=== PATIENT | female | born 1980 | race Caucasian/White ===

== ENCOUNTER 2018-11-19 19:30 | Emergency (ER) | payer MEDICAID, SELFPAY ==
[2018-11-19 19:33] VITALS: BP 128/81; PULSE 104; RESP 20; TEMP 36.8; O2SAT 100; BMI 37.8
--- NOTE | 2018-11-19 20:09 | ED.VISSUMM ---
- ER Visit Summary Date of Service: 11/19/18 Chief Complaint: Vaginal bleeding History of Present Illness: The patient is a 38 F past medical history of anemia, hypothyroidism and G2, P2 Ab0. States she is had intermittent heavy vaginal bleeding for over a year. It has gotten worse since . States she does feel at times week. Denies any significant pain other than some mild cramping. No dysuria. No discharge. She is seen in the [facility] at the [facility] by nurse practitioner. She states they did an ultrasound in the last several months which showed a thickened uterine lining. She has not needed a transfusion as of yet nor has she needed a D&C. Physical Examination: Vital signs are stable. Heart rate 104. Initial blood pressure 128/81. She does not look septic or toxic. She is no distress. She does not appear to be pale. HEENT exam unremarkable other pale. Neck nontender. Lungs with auscultation bilaterally. Heart regular rhythm rate about 100 no murmur. Abdomen soft nontender normal bowel sounds no peritoneal signs. Moving all 4 extremities. No edema. Neurologically she is awake and alert with no focal motor deficits. Test Results: CBC White count 7. Hemoglobin 12 which is her baseline. Serum test negative. Emergency Department Course and Treatment: Patient with prolonged and heavy vaginal bleeding. Repeat exam at 2114 patient is doing well. Given that she is not anemic and she said her bleeding is not heavy at this time she is comfortable deferring the pelvic exam at follow-up with the [facility]. And explained her that she needs to see 1 of her [employer] to discuss with them possible D&C or other therapeutic options Treatment Plan: Follow-up [facility]. Disposition: Discharge Impression: Acute on chronic vaginal bleeding This note was generated with [employer] dictation software. It may contain incorrect words, spelling, and punctuation that were not noted in review of the chart prior to signing ED Disposition - Plan for ED Patient: Referrals: Vita Stanley MD [Primary Care Provider] -
[2018-11-19 20:39] LABS: Hematocrit 35.7 % (37-47); Hemoglobin 12.1 g/dl (12.0-15.0); Mean Corp Hgb Conc 33.9 g/gl (32-36); Mean Corpuscular Hgb 31.7 pg (27.0-32.0); Mean Corpuscular Volume 93.5 fL (81-99); Mean Platelet Vol. 10.9 fl (6.2-12.0); Platelet Count 207 K/mm3 (150-450); RBC Distribution Width CV 12.9 % (11.6-14.6); RBC Distribution Width SD 44.3 fl (35.1-43.9); Red Blood Count 3.82 M/mm3 (4.2-5.4); Scan Indicated on CBC? Y/N NO
[2018-11-19 21:13] LABS: Internal QC Validated? YES +Cl - CLEAR BKGD; Pregnancy, Serum, hCG Quali. NEGATIVE Negative
--- NOTE | 2018-11-19 21:17 | ED.DEP ---
ED Disposition - Plan for ED Patient: Disposition: Home or Assisted Living Instructions: ED Bleed Irregular Vaginal Referrals: Ely Sahu MD [STAFF PHYSICIAN] - As soon as possible Additional Instructions: Call follow-up with 1 of the [employer] [facility].
[2018-11-19 21:24] VITALS: BP 123/71; PULSE 87; RESP 18; O2SAT 98
== END 2018-11-19 21:25 | disposition home or self-care (01) ==
PROVIDERS: Emergency Provider Emergency Medicine; Family Provider Internal Medicine; PCP Internal Medicine
DX: N93.9 Abnormal uterine and vaginal bleeding, unspecified (principal); E03.9 Hypothyroidism, unspecified
CPT/HCPCS: 84703; 85027; 86850; 86900; 86901; 99283; A4216

== ENCOUNTER → 2018-12-25 08:54 | Outpatient (CLI) | payer MEDICAID, SELFPAY | PROVIDERS: Family Provider Internal Medicine; PCP Internal Medicine; Referring Provider Obstetrics & Gynecology; Visit Provider Obstetrics & Gynecology | DX: Z01.818 Encounter for other preprocedural examination (principal) ==

== ENCOUNTER 2019-01-19 16:27 | Emergency (ER) | payer MEDICAID, SELFPAY ==
[2019-01-19 16:28] VITALS: BP 142/80; PULSE 109; RESP 18; TEMP 36.9; O2SAT 99; BMI 35.6
--- NOTE | 2019-01-19 17:04 | EKG12_ITS ---
Test Reason : Blood Pressure : / mmHG Vent. Rate : 099 BPM Atrial Rate : 099 BPM P-R Int : 132 ms QRS Dur : 074 ms QT Int : 334 ms P-R-T Axes : 012 005 010 degrees QTc Int : 428 ms Normal sinus rhythm Nonspecific T wave abnormality Abnormal ECG Confirmed by JACQUIE KHAN, JESSY ([id number]), video tape editor MASOUD RAMIREZ ([id number]) on 01/21/2019 1:48:00 PM Referred By: TIARA Confirmed By:JESSY DHILLON MD
--- NOTE | 2019-01-19 17:26 | RAD_ITS ---
STUDY: X-RAY CHEST REASON FOR EXAM: Female, 38 years old. Chest pain. TECHNIQUE: PA and lateral. COMPARISON: None. FINDINGS: The lungs are clear and expanded. There is no demonstrated pleural abnormality. Normal size heart. Normal mediastinum and brenda. Normal visualized pulmonary arteries. Normal visualized aortic arch and descending thoracic aorta. Normal visualized thoracic spine. Normal visualized ribs, clavicles, and shoulders. There is no demonstrated abnormality of the visualized soft tissue structures of the upper abdomen. RAD/Chest PA and Lateral IMPRESSION: Normal x-ray examination of the chest. Electronically Signed: Maribeth Cisneros MD at 17:45 EDT Tel , Service support ,
[2019-01-19 17:29] LABS: D-Dimer Quantitative (DVT/PE) 0.45 FEU/ug/m (0.27-0.49)
--- NOTE | 2019-01-19 17:56 | ED.VIS.GEN ---
History of Present Illness Chief Complaint: Chest Other Informant: Patient Onset: Days - 2 Timing: Continuous Current Severity: Moderate Maximum Severity: Moderate Narrative: Patient presents with chest wall pain on the left for the past 2 days it is constant but worse with taking a deep breath twisting or moving. She has no DVT risk factors. She has no back pain or tearing sensation. No fever or chills or cough. She has no abdominal pain. Pain is sharp stabbing and constant Past Medical History - Allergies and Home Meds Allergies/Adverse Reactions: Allergies Penicillins Allergy (Verified 01/19/19 16:30) Rash Primary Care Physician: Vita Stanley MD [Primary Care Provider] - Prior records reviewed: Yes Past Medical History: - - Bipolar, hypothyroid Smoking Status: Never smoker Review of Systems All systems negative except as indicated General: Denies: Fever Cardiovascular: Reports: Chest pain. Denies: Palpitations, Heart racing Respiratory: Denies: Dyspnea, Cough, Sputum Gastrointestinal: Denies: Abdominal pain, Nausea, Vomiting Musculoskeletal: Denies: Back pain Skin: Denies: Rash Neurological: Denies: Weakness Endocrine: Denies: Polyuria Hematologic: Denies: Easy bruising Physical Exam Vital Signs/Narrative: Vital Signs Temp Pulse Resp BP Pulse Ox 01/19/19 16:28 98.5 F 109 H 18 142/80 H 99 General: Well nourished Head: Normocephalic Eyes: Perrl, EOMI ENT: Moist mucous membranes Neck: Supple Cardiovascular: Regular rate, Regular rhythm Respiratory: Chest tenderness, - - Producible left-sided chest wall pain, no rash Abdomen: Soft, Nontender Back: Nontender, Normal Inspection Extremities: Nontender, No edema Skin: Normal color, No rash Neurological: Alert, Normal Strength, Normal Sensation Diagnostic/Tx/Re-eval Chest X-Ray - ED: 2 View, Read by ED Physician, Read by Radiologist, Normal, Heart, Lungs, Mediastinum - Rhythm Strip Rhythm Strip: Sinus Rhythm Rate: 99 Ectopy: None - EKG Initial EKG Interpretation: Sinus Rhythm, Non-Specific ST Changes, - - Is 99, normal MN and QTc intervals. Interpreted by emergency doctor - Medical Decision Making Patient has a normal EKG normal troponin, d-dimer is negative. She has family history of cardiac disease, no other history her heart score is a 2 I believe she is stable for discharge. She is to follow-up with PCP. Discharge stable condition ED Disposition - Plan for ED Patient: Disposition: Home or Assisted Living Diagnosis: Chest pain Instructions: CHEST WALL PAIN, Costochondritis Prescriptions: Naproxen [Naprosyn] 500 mg PO BID PRN #20 tab Prescription Printed Referrals: Vita Stanley MD [Primary Care Provider] - 3-5 Days
== END 2019-01-19 18:17 | disposition home or self-care (01) ==
PROVIDERS: Emergency Provider Emergency Medicine; Family Provider Internal Medicine; PCP Internal Medicine
DX: R07.89 Other chest pain (principal); Z82.49 Family history of ischemic heart disease and other diseases of the circulatory system; F31.9 Bipolar disorder, unspecified; E03.9 Hypothyroidism, unspecified; Z79.899 Other long term (current) drug therapy
CPT/HCPCS: 71046; 84484; 85379; 93005; 99283; A4216

== ENCOUNTER 2019-04-02 22:30 | Emergency (ER) | payer MEDICAID, SELFPAY ==
[2019-04-02 22:31] VITALS: BP 121/77; PULSE 97; RESP 16; TEMP 36.6; O2SAT 100; BMI 35.6
--- NOTE | 2019-04-02 22:55 | ED.VIS.GEN ---
History of Present Illness Chief Complaint: Eye Problem Narrative: Patient is a 38-year-old female who presents with a left eye injury. She was putting nail cameroonian on and shook her hands and got some of the nail cameroonian into her left eye. She was wearing contacts at the time which she has taken out. She initially had some discomfort but currently actually is asymptomatic. She does not currently have any foreign body sensation or visual changes. She states she just wanted it checked to make sure there there was nothing still in her eye and that she did not have any injury. Past Medical History - Allergies and Home Meds Allergies/Adverse Reactions: Allergies Penicillins Allergy (Verified 04/02/19 22:33) Rash Primary Care Physician: Vita Stanley MD [Primary Care Provider] - Past Medical History: - - Bipolar Smoking Status: Never smoker Review of Systems All systems negative except as indicated General: Denies: Fever Eyes: Reports: - - Transient left eye pain Cardiovascular: Denies: Chest pain Respiratory: Denies: Dyspnea Gastrointestinal: Denies: Vomiting Physical Exam Vital Signs/Narrative: Vital Signs Temp Pulse Resp BP Pulse Ox 04/02/19 22:31 98 F 97 16 121/77 H 100 General: Well nourished, Well developed Head: Normocephalic, Atraumatic Eyes: Perrl - Anterior chamber deep and quiet, no foreign body visualized, eyelids everted no hyphema,, EOMI, - Neck: Supple Cardiovascular: Regular rate Respiratory: No distress Abdomen: Soft Skin: Normal color Neurological: Alert Psychological: Normal affect Diagnostic/Tx/Re-eval - Medical Decision Making Slit-lamp examination with tetracaine and fluorescein was performed. No corneal abrasion or dye uptake. Patient was reassured. She understands to return for new or worsening symptoms and was discharged home. ED Disposition - Plan for ED Patient: Disposition: Home or Assisted Living Diagnosis: Left eye injury Instructions: Corneal Injury Referrals: Vita Stanley MD [Primary Care Provider] -
[2019-04-02] MEDS: Fluorescein 1 MG STRIP 1 STRIP LEFT EYE (23:08)
[2019-04-02] MEDS: Tetracaine 0.5% Ophthalmic Bottle 1 DRP LEFT EYE (23:09)
== END 2019-04-02 23:27 | disposition home or self-care (01) ==
PROVIDERS: Emergency Provider Emergency Medicine; Family Provider Internal Medicine; PCP Internal Medicine
DX: S05.92XA Unspecified injury of left eye and orbit, initial encounter (principal); X58.XXXA Exposure to other specified factors, initial encounter; Y93.89 Activity, other specified
CPT/HCPCS: 99282

== ENCOUNTER 2022-02-13 00:29 | Emergency (ER) | payer MEDICAID, SELFPAY ==
[2022-02-13 00:29] VITALS: BP 135/87; PULSE 95; RESP 16; TEMP 36.8; O2SAT 100; BMI 37.4
--- NOTE | 2022-02-13 00:49 | EDS_ITS ---
HPI History of Present Illness Chief Complaint: General Illness Informant: patient Narrative Narrative: Patient told me that her symptoms started about 1 week ago and about 2 weeks ago. She started with runny nose congestion. She has had a slight cough but that is getting better. No sputum production. No dyspnea. She has had some myalgias arthralgias. and Monday she had a lot of nausea and vomiting but that is better today. She still has some nausea but is able to eat and drink now. She never had diarrhea. She just feels off and generally weak today. It is hard for her to describe this. She is concerned she has COVID again. No known exposure. [facility] Medical History Bipolar 1 disorder Hypothyroid Home Medications lamotrigine 200 mg tablet (Lamictal) 150 mg PO DAILY 06/27/13 [History Last Taken Unknown] levothyroxine 150 mcg tablet 137 mcg PO DAILY 11/19/18 [History Last Taken Unknown] buspirone 5 mg tablet 5 mg DAILY 02/13/22 [History Last Taken Unknown] Allergy/AdvReac Type Severity Reaction Status Date / Time Penicillins Allergy Rash Verified 02/13/22 00:31 Social History Smoking Status: Never smoker [facility] ED Constitutional Constitutional ED: Denies fever(s) Eyes Eyes: Denies blurry vision ENT ENT ED: Reports rhinorrhea and sore throat Cardiovascular Cardiovascular: Denies chest pain or palpitations Respiratory/Chest Respiratory/Chest: Reports cough; Denies dyspnea Gastrointestinal Gastrointestinal: Reports nausea and vomiting; Denies abdominal pain, constipation, diarrhea or melena Genitourinary Genitourinary ED: Denies dysuria or hematuria Musculoskeletal Musculoskeletal: Reports myalgias Integumentary Denies rash Neurologic Neurologic: Denies headache(s) or weakness Psychiatric Psychiatric: Reports anxiety and depression Endocrine Endocrinology: Denies polydipsia or polyuria Hematologic/Lymphatic Hematologic/Lymphatic: Denies easy bleeding or easy bruising Allergic/Immunologic Allergic/Immunologic ED: Denies urticaria EXAM Physical Exam Const Vital Signs: 02/13/22 00:29 02/13/22 00:33 Temperature 98.3 F Temperature Source Oral Pulse Rate 95 Respiratory Rate 16 Respiratory Effort Normal Non-Labored Respiratory Pattern Normal Blood Pressure 135/87 H Blood Pressure Mean 103 Pulse Ox 100 Oxygen Delivery Method Room Air Positive well nourished, well developed and obese General Appearance ED: well developed and NAD; Negative for pallor Nutritional Appearance: obese HEENT Reports dry mucous membranes Mouth ED: Yes dry mucous membranes Mouth: dry mucous membranes Eyes General Eye ED: Negative for scleral icterus Neck no JVD Chest Wall inspection of chest normal Resp normal respiratory effort and clear to auscultation bilaterally Auscultation: Negative for rales, rhonchi or wheezes Cardio regular rate and regular rhythm GI normal to inspection, nondistended, normoactive bowel sounds and non-tender Palpation: soft Back/Spine no CVA tenderness Extremity normal to inspection General Extremety ED: Negative for edema or tenderness General Extremity: Negative for edema Neuro oriented x3 Sensorium / Orientation: alert Psych mental status grossly normal Skin no rashes or lesions noted General Skin Exam: Negative for jaundice or pallor MDM MDM MDM Narrative Medical decision making narrative: Patient CBC including white count hemoglobin platelets normal. Electrolytes are overall normal other than minimal elevations of chloride and glucose. is negative. COVID is negative. Patient is feeling better. We will get her home. This is most likely a viral syndrome. She has multiple symptoms across multiple systems. These are waxing and waning. She is tired with myalgias. This should resolve on its own. We did discuss reasons to prompt return and need for follow-up. Lab Data Attestation: I reviewed the patient's lab results. Labs: Laboratory Results - last 24 hr 02/13/22 02/13/22 02/13/22 01:10 01:10 01:10 WBC 8.7 RBC 3.88 L Hgb 12.4 Hct 36.7 L MCV 94.6 MCH 32.0 MCHC 33.8 RDW Std Deviation 43.4 RDW Coeff of Jose 12.6 Plt Count 198 MPV 11.2 Immature Gran % (Auto) 0.300 Neut % (Auto) 43.8 L Lymph % (Auto) 48.9 H [place] % (Auto) 5.0 Eos % (Auto) 1.4 Baso % (Auto) 0.6 Absolute Neuts (auto) 3.8 Absolute Lymphs (auto) 4.27 Nucleated RBC % 0 Sodium 141 Potassium 3.7 Chloride 109 H Carbon Dioxide 26.0 Anion Gap 6 BUN 10 Creatinine 0.86 Estim Creat Clear Calc 68.09 Est GFR (MDRD) Af Amer 93 Est GFR (MDRD) Non-Af 77 BUN/Creatinine Ratio 11.6 Glucose 117 H Calcium 9.4 Serum , Qual NEGATIVE Discharge Plan Triage Chief Complaint: General Illness ED Provider: Imtiaz Modi Dx/Rx/DC Orders Clinical Impression: Acute viral syndrome, Malaise Instructions: ED Viral Syndrome (Adult) Prescriptions: No Action lamotrigine [Lamictal] 200 MG tablet 150 mg PO DAILY levothyroxine 150 tablet 137 mcg PO DAILY buspirone 5 mg tablet 5 mg DAILY Label Comments: Take 1 tablet by mouth twice a day Primary Care Provider: Vita Stanley Referrals: Vita Stanley MD [Primary Care Provider] - 3-5 Days if not improving Disposition Disposition: Home, Self Care
[2022-02-13] MEDS: 0.9% Normal Saline 1,000 ML 1000 ML IV (01:06)
[2022-02-13] MEDS: Ondansetron 4 MG/2 ML Vial IV (01:06)
[2022-02-13 01:30] LABS: Absolute Lymphocyte Count 4.27 X10^3/uL (0.83-4.51); Absolute Neutrophil Count 3.8 X10^3/uL (2.0-7.7); Basophil# 0.05 X10^3/uL; Basophil% 0.6 % (0-1); Eosinophil# 0.12 X10^3/uL; Eosinophils% 1.4 % (0-5); Hematocrit 36.7 % (37-47); Hemoglobin 12.4 g/dL (12.0-15.0); Lymphocyte # 4.27 X10^3/ul (0.83-4.51); Lymphocyte % 48.9 % (19-41); Mean Corp Hgb Conc 33.8 g/dL (32-36); Mean Corpuscular Volume 94.6 fL (81-99); Mean Platelet Vol. 11.2 fl (6.2-12.0); Monocyte# 0.44 X10^3/uL; NRBC Flagged by Analyzer 0 % (0-5); Neutrophil # 3.83 X10^3/uL (2.7-7.7); Neutrophil % 43.8 % (47-70); Platelet Count 198 K/mm3 (150-450); RBC Distribution Width CV 12.6 % (11.6-14.6); RBC Distribution Width SD 43.4 fl (35.1-43.9); Red Blood Count 3.88 M/mm3 (4.2-5.4); White Blood Count 8.7 K/mm3 (4.4-11.0)
[2022-02-13 01:34] LABS: Internal QC Validated? YES +Cl - CLEAR BKGD; Pregnancy, Serum, hCG Quali. NEGATIVE Negative
[2022-02-13 01:39] LABS: Anion Gap 6 (5-15); BUN 10 mg/dL (7-18); BUN/Creat Ratio 11.6 RATIO (10-20); Calcium,Total 9.4 mg/dL (8.5-10.1); Chloride 109 mmol/L (98-107); Creatinine, Serum 0.86 mg/dL (0.55-1.02); EST Glomerular Filtration Rate 77 mL/min (>60); Est Glom Filt Rate - Afr Amer 93 mL/min (>60); Estimated Creatinine Clearance 68.09 ml/min; Glucose 117 mg/dL (74-106); Potassium 3.7 mmol/L (3.5-5.1); Sodium Level 141 mmol/L (136-145)
[2022-02-13 02:35] VITALS: BP 125/82
== END 2022-02-13 02:36 | disposition home or self-care (01) ==
PROVIDERS: Emergency Provider Emergency Medicine; PCP Internal Medicine; Visit Provider Emergency Medicine
DX: B34.9 Viral infection, unspecified (principal); F31.9 Bipolar disorder, unspecified; R53.81 Other malaise; E03.9 Hypothyroidism, unspecified; Z79.899 Other long term (current) drug therapy; Z86.16 Personal history of COVID-19
CPT/HCPCS: 80048; 84703; 85025; 87428; 96361; 96374; 99283; J7030; A4216; J2405

== ENCOUNTER 2024-06-07 14:31 | Emergency (ER) | payer MEDICAID, SELFPAY ==
[2024-06-07 14:31] VITALS: BP 107/65; PULSE 91; RESP 16; TEMP 37.1; O2SAT 100
--- NOTE | 2024-06-07 14:36 | EKG12_ITS ---
Test Reason : Blood Pressure : */* mmHG Vent. Rate : 96 BPM Atrial Rate : 96 BPM P-R Int : 136 ms QRS Dur : 76 ms QT Int : 324 ms P-R-T Axes : 50 46 53 degrees QTcB Int : 409 ms Normal sinus rhythm Normal ECG Confirmed by Olman York ([id number]), editor greeting card CHRISTINE VARGAS ([id number]) on 06/10/2024 6:55:39 AM Referred By: Confirmed By: Olman York
[2024-06-07 14:47] LABS: Absolute Lymphocyte Count 3.03 X10^3/uL (0.83-4.51); Basophil# 0.04 X10^3/uL; Basophil% 0.4 % (0-1); Eosinophil# 0.03 X10^3/uL; Eosinophils% 0.3 % (0-5); Hematocrit 35.3 % (37-47); Hemoglobin 11.7 g/dL (12.0-15.0); Lymphocyte # 3.03 X10^3/ul (0.83-4.51); Lymphocyte % 30.5 % (19-41); Mean Corp Hgb Conc 33.1 g/dL (32-36); Mean Corpuscular Hgb 31.9 pg (27.0-32.0); Mean Corpuscular Volume 96.2 fL (81-99); Mean Platelet Vol. 11.4 fl (6.2-12.0); Monocyte# 0.81 X10^3/uL; Monocyte% 8.2 % (0-10); NRBC Flagged by Analyzer 0 % (0-5); Neutrophil % 60.4 % (47-70); Platelet Count 168 K/mm3 (150-450); RBC Distribution Width SD 42.1 fl (35.1-43.9); Red Blood Count 3.67 M/mm3 (4.2-5.4); White Blood Count 9.9 K/mm3 (4.4-11.0)
[2024-06-07 15:15] LABS: ALB/GLOB Ratio 0.8 RATIO (0.9-2.4); AST(SGOT) 51 U/L (15-37); Alanine Aminotransfer ALT/SGPT 54 U/L (13-56); Albumin, Serum 3.6 g/dL (3.2-5.0); Alkaline Phosphatase 149 U/L (45-117); Anion Gap 6 (5-15); BUN 5 mg/dL (7-18); BUN/Creat Ratio 4.1 RATIO (10-20); Calcium,Total 9.1 mg/dL (8.5-10.1); Chloride 102 mmol/L (98-107); Creatinine, Serum 1.22 mg/dL (0.55-1.02); EST Glomerular Filtration Rate 51 mL/min (>60); Est Glom Filt Rate - Afr Amer 62 mL/min (>60); Globulin 4.3 g/dL (2.2-4.2); Glucose 96 mg/dL (74-106); Potassium 2.7 mmol/L (3.5-5.1); Protein, Total 7.9 g/dL (6.4-8.2); Sodium Level 135 mmol/L (136-145)
[2024-06-07 15:30] VITALS: BMI 36.8
[2024-06-07 15:31] VITALS: BP 109/74; BP 110/77; BP 112/82; PULSE 100; PULSE 97; PULSE 98; RESP 16; O2SAT 97
[2024-06-07] MEDS: 0.9% Normal Saline (1000mL) 1,000 ML 999 ML IV (15:31)
[2024-06-07] MEDS: Potassium Chloride Oral Tablet 20 MEQ 40 MEQ PO (15:31)
[2024-06-07 15:38] LABS: Magnesium 2.3 mg/dL (1.6-2.6)
--- NOTE | 2024-06-07 15:51 | EX.ED.DYSGE1 ---
HPI History of Present Illness Chief Complaint: Syncope Informant: patient Narrative Narrative: Brought in by EMS from work for syncopal episode. 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 [place] sick to her stomach she remembers dry heaving 2 times and up on the ground waking up to coworkers. Yesterday just felt fatigued. Is been having urine frequency. No chest pains. No cough. No headache. She has an IUD due to abnormal bleeding. Denies history of similar. Hypothyroidism bipolar history taking her medications. No recent diarrhea. Prior similar symptoms: No PFSH PFSH Medical History Bipolar 1 disorder Hypothyroid Home Medications ?Medication ?Instructions ?Recorded ?Last Taken ?Type lamotrigine 200 mg tablet 150 mg PO DAILY 06/27/13 Unknown History (Lamictal) buspirone 5 mg tablet 5 mg PO DAILY 02/13/22 Unknown History levothyroxine 137 mcg tablet 137 mcg PO DAILY disorder of 06/07/24 Unknown History thyroid gland nitrofurantoin 100 mg PO Q12 #14 CAPSULES 06/07/24 Unknown Rx monohydrate/macrocrystals 100 mg capsule ondansetron 4 mg disintegrating 4 mg PO Q8H PRN PRN Nausea #10 tabs 06/07/24 Unknown Rx tablet potassium chloride 20 mEq 20 meq PO DAILY #7 tabs 06/07/24 Unknown Rx tablet,extended release Allergy/AdvReac Type Severity Reaction Status Date / Time Penicillins Allergy Rash Verified 06/07/24 14:33 Surgical History History of cholecystectomy Social History Smoking Status: Never smoker ROS ROS ED Constitutional Constitutional ED: Denies chills, fever(s) or sweats Eyes Eyes: Denies change in vision ENT ENT ED: Denies dysphagia or sore throat Cardiovascular Cardiovascular: Reports other Details: Syncope ; Denies chest pain, leg edema, palpitations or racing heartbeat Respiratory/Chest Respiratory/Chest: Denies cough, dyspnea or dyspnea on exertion Gastrointestinal Gastrointestinal: Denies abdominal pain, diarrhea, nausea or vomiting Genitourinary Genitourinary ED: Reports urinary frequency; Denies dysuria or hematuria Musculoskeletal Musculoskeletal: Denies back pain, extremity pain or neck pain Integumentary Denies rash or wounds Neurologic Neurologic: Denies headache(s), paresthesias or weakness EXAM Physical Exam Const Vital Signs: 06/07/24 14:31 06/07/24 15:30 06/07/24 15:31 Temperature 98.8 F Temperature Source Oral Pulse Rate 91 Pulse Rate [Lying] 97 Pulse Rate [Sitting (for 1 minute prior to obtaining)] 98 Pulse Rate [Standing (for 1 minute prior to obtaining)] 100 Respiratory Rate 16 Respiratory Effort Respiratory Pattern Blood Pressure 107/65 Blood Pressure [Lying] 109/74 Blood Pressure [Sitting (for 1 minute prior to obtaining)] 112/82 H Blood Pressure [Standing (for 1 minute prior to obtaining)] 110/77 Blood Pressure Mean 79 Blood Pressure Mean [Lying] 85 Blood Pressure Mean [Sitting (for 1 minute prior to obtaining)] 92 Blood Pressure Mean [Standing (for 1 minute prior to obtaining)] 88 Pulse Ox 100 Oxygen Delivery Method Room Air Room Air 06/07/24 15:31 06/07/24 15:32 06/07/24 16:00 Temperature Temperature Source Pulse Rate 97 105 H Pulse Rate [Lying] Pulse Rate [Sitting (for 1 minute prior to obtaining)] Pulse Rate [Standing (for 1 minute prior to obtaining)] Respiratory Rate 16 15 Respiratory Effort Normal Respiratory Pattern Normal Blood Pressure 109/74 109/83 H Blood Pressure [Lying] Blood Pressure [Sitting (for 1 minute prior to obtaining)] Blood Pressure [Standing (for 1 minute prior to obtaining)] Blood Pressure Mean 85 91 Blood Pressure Mean [Lying] Blood Pressure Mean [Sitting (for 1 minute prior to obtaining)] Blood Pressure Mean [Standing (for 1 minute prior to obtaining)] Pulse Ox 97 98 Oxygen Delivery Method Room Air Room Air Positive well nourished and well developed General Appearance ED: well developed and NAD HEENT Reports moist mucous membranes normocephalic and atraumatic Eyes EOMs intact bilaterally and conjunctivae normal General Eye ED: Yes normal appearance of both eyes; Negative for pale conjunctiva Neck no lymphadenopathy and supple General: Negative for tenderness Chest Wall Chest: Negative for tenderness Resp normal respiratory effort and normal air movement Effort and Inspection: symmetric chest movement; Negative for respiratory distress Cardio regular rate, regular rhythm and no murmurs Peripheral Pulses: pulses 2+ throughout GI normal to inspection, nondistended, normoactive bowel sounds and non-tender Palpation: Negative for guarding or rebound tenderness present Back/Spine no CVA tenderness and no thoracic nor lumbar tenderness Extremity normal to inspection General Extremety ED: Negative for edema or tenderness General Extremity: Negative for edema Neuro oriented x3, CN's II-XII intact bilaterally and no sensory deficits noted Sensorium / Orientation: awake and alert Skin no rashes or lesions noted and no wounds MDM MDM MDM Narrative Medical decision making narrative: Interventions / MDM: Differential diagnosis: Vasovagal syncope, electrolyte abnormalities, UTI Diagnosis considered but do not suspect: PERC negative pulmonary embolism however My EKG interpretation: Sinus rhythm 96, no ST or T wave changes. QTc 409. Imaging independently reviewed and interpreted by myself: N/A External documents reviewed: N/A Test considered but not ordered:N/A ED course: Vital stable no focal deficits. Patient dry heaving prior to syncopal episode concerning for vasovagal episode. EKG no acute process. Will check labs urine with her frequency. Will give IV fluids. 1545: Potassium returned at 2.7. Creatinine 1.22. Orthostatics negative. Oral potassium ordered added magnesium further evaluation. Will reevaluate. 1650: Urine with infection. Ambulated no return of symptoms. Started on Macrobid slight headache and returns given Tylenol. No focal deficit she is nontoxic. Prescription for Macrobid, potassium for 1 week along with Zofran to use as needed. Work note given. Follow-up with her PCP with strict return precautions. All questions were answered. Re-evaluation: stable Disposition discussed with patient/family/significant other: Patient Case discussed with consulting clinician: N/A This note was generated with [employer] dictation software. It may contain incorrect words, spelling, and punctuation that were not noted in checking the note before signing. Lab Data Attestation: I reviewed the patient's lab results. Labs: Laboratory Results - last 24 hr 06/07/24 06/07/24 14:25 16:17 WBC 9.9 RBC 3.67 L Hgb 11.7 L Hct 35.3 L MCV 96.2 MCH 31.9 MCHC 33.1 RDW Std Deviation 42.1 RDW Coeff of Jose 12.0 Plt Count 168 MPV 11.4 Immature Gran % (Auto) 0.200 Neut % (Auto) 60.4 Lymph % (Auto) 30.5 [place] % (Auto) 8.2 Eos % (Auto) 0.3 Baso % (Auto) 0.4 Absolute Neuts (auto) 6.0 Absolute Lymphs (auto) 3.03 Nucleated RBC % 0 Sodium 135 L Potassium 2.7 L* Chloride 102 Carbon Dioxide 27.0 Anion Gap 6 BUN 5 L Creatinine 1.22 H Est GFR (MDRD) Af Amer 62 Est GFR (MDRD) Non-Af 51 L BUN/Creatinine Ratio 4.1 L Glucose 96 Calcium 9.1 Magnesium 2.3 Total Bilirubin 0.90 AST 51 H ALT 54 Alkaline Phosphatase 149 H Total Protein 7.9 Albumin 3.6 Globulin 4.3 H Albumin/Globulin Ratio 0.8 L Urine Color Straw Urine Clarity Clear Urine pH 7.0 Ur Specific [place] 1.010 Urine Protein 15 H Urine Glucose (UA) Normal Urine Ketones Negative Urine Occult Blood 25 H Urine Nitrite Negative Urine Bilirubin Negative Urine Urobilinogen Normal Ur Leukocyte Esterase 500 H Urine RBC 0 SEEN Urine WBC >100 SEEN Ur Squamous Epith Cells 0 SEEN Urine Bacteria 1+ Urine Mucus 1+ Urine Test Negative Discharge Plan Triage Chief Complaint: Syncope ED Provider: Tony Kearney Dx/Rx/DC Orders Clinical Impression: Syncope, vasovagal, UTI (urinary tract infection), Hypokalemia Instructions: Urinary Tract Infections in Women, ED Fainting, Vagal Reaction Prescriptions: New ondansetron 4 mg tablet,disintegrating 4 mg PO Q8H PRN PRN (Reason: Nausea) Qty: 10 0RF nitrofurantoin monohyd/m-cryst 100 mg capsule 100 mg PO Q12 Qty: 14 0RF potassium chloride 20 mEq tablet extended release 20 meq PO DAILY Qty: 7 0RF No Action lamotrigine [Lamictal] 200 MG tablet 150 mg PO DAILY buspirone 5 mg tablet 5 mg PO DAILY Patient Comments: Take 1 tablet by mouth twice a day levothyroxine 137 mcg tablet 137 mcg PO DAILY Stand Alone Forms: ED Work / School Excuse Primary Care Provider: Vita Stanley Referrals: Vita Stanley MD [Primary Care Provider] - 3-5 Days Activity Restrictions/Additional Instructions: EKG normal. Labs with potassium 2.7 magnesium normal at 2.3. Hemoglobin 11.7. White count 9.9. Creatinine 1.22. Urine with infection. Given potassium replacement in the ED. Continue with potassium. Finish your antibiotic. You Zofran as needed. Continue oral fluids for hydration. Follow-up with your doctor. Symptoms recur or worsens, return to the ED for reevaluation. Print Language: Greek Disposition Disposition: Home, Self Care
[2024-06-07 16:00] VITALS: BP 109/83; PULSE 105; RESP 15; O2SAT 98
[2024-06-07 16:26] VITALS: O2SAT 98
[2024-06-07 16:26] LABS: Red Blood Cells-Urine 0 SEEN /hpf (0-5); Squamous Epithelial Cells - UA 0 SEEN /hpf (5-10)
[2024-06-07 16:30] LABS: Color, Urine Straw (Yellow); Glucose, Dipstick Normal (Normal); Ketone-Dipstick Negative (Negative); Leukocyte Esterase-Dipstick 500 /ul (Negative); Nitrite-Dipstick Negative (Negative); Occult Blood-Urine 25 /ul (Negative); Protein-Dipstick 15 mg/dl (Negative); Urine Bilirubin Dipstick Negative (Negative); Urine Clarity Clear (Clear); Urine Urobilinogen Normal (Normal)
[2024-06-07 16:32] VITALS: O2SAT 98
[2024-06-07 16:43] LABS: Bacteria 1+ /hpf (None Seen); Internal QC Validated? YES +Cl - CLEAR BKGD; Mucous, Urine 1+ /hpf (<or=2+); Pregnancy, Urine Negative Negative; White Blood Cells >100 SEEN /hpf (0-5)
[2024-06-07] MEDS: Acetaminophen 500 MG Tablet 1000 MG PO (17:01)
[2024-06-07] MEDS: Nitrofurantoin Macrocrystals 100 MG Capsule PO (17:02)
[2024-06-07 17:03] VITALS: BP 118/67; PULSE 77; RESP 16; TEMP 36.5; O2SAT 97
== END 2024-06-07 17:04 | disposition home or self-care (01) ==
PROVIDERS: Emergency Provider Emergency Medicine; PCP Internal Medicine; Visit Provider Emergency Medicine
DX: R55 Syncope and collapse (principal); F31.9 Bipolar disorder, unspecified; N39.0 Urinary tract infection, site not specified; E87.6 Hypokalemia; E03.9 Hypothyroidism, unspecified; Z79.899 Other long term (current) drug therapy
CPT/HCPCS: 80053; 81001; 81025; 83735; 85025; 93005; 96360; 99285; A4216

== ENCOUNTER 2024-06-11 18:13 | Emergency (ER) | payer MEDICAID, SELFPAY ==
[2024-06-11 18:16] VITALS: BP 160/79; PULSE 81; RESP 18; TEMP 36.3; O2SAT 100
[2024-06-11 18:19] VITALS: BMI 37.1
[2024-06-11 18:21] VITALS: O2SAT 100
--- NOTE | 2024-06-11 18:21 | EKG12_ITS ---
Test Reason : DYSRYTHMIA Blood Pressure : */* mmHG Vent. Rate : 79 BPM Atrial Rate : 79 BPM P-R Int : 138 ms QRS Dur : 72 ms QT Int : 396 ms P-R-T Axes : 36 8 8 degrees QTcB Int : 454 ms Normal sinus rhythm Cannot rule out Anterior infarct , age undetermined Abnormal ECG Confirmed by JACQUIE KHAN, JESSY ([id number]), newspaper editor CHRISTINE VARGAS ([id number]) on 06/12/2024 11:38:33 AM Referred By: Confirmed By: JESSY DHILLON MD
[2024-06-11 20:14] VITALS: BP 123/77; PULSE 77; RESP 18; O2SAT 100
--- NOTE | 2024-06-11 21:01 | CT_ITS ---
STUDY: CT BRAIN WITHOUT CONTRAST REASON FOR EXAM: Female, 44 years old. headache, syncope RADIATION DOSAGE (If Supplied By Facility): CTDIvol = ( 44.99 ) mGy, DLP = ( 812.98 ) mGycm TECHNIQUE: Transaxial CT imaging of the brain was performed without administration of intravenous contrast material. Individualized dose optimization techniques were used for this CT. COMPARISON: No relevant priors. FINDINGS: Normal soft tissue structures. Normal calvarium. Normal size ventricles and extra-axial spaces for the patient''s age. Normal white matter tracts of the cerebral hemispheres. Normal basal ganglia and thalami. Normal brainstem. Normal cerebellum. There is no intracranial hemorrhage. There are no findings of an acute ischemic infarction. Normal visualized paranasal sinuses. CT/Brain/Head without Contrast IMPRESSION: Normal unenhanced CT scan of the brain. Electronically Signed: Yogi Castillo DO at 22:13 EST ,
--- NOTE | 2024-06-11 21:03 | EDS_ITS ---
HPI History of Present Illness Chief Complaint: Syncope Detail of Chief Complaint: Near syncope Informant: patient Narrative Narrative: Patient presents the emergency department complaint of feeling like she feels like she could pass out. Patient was seen in the emergency department on June 07 after a syncopal episode at work and at that time she was also found to be hypokalemic and felt that she likely had a vasovagal episode. 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 Today she just felt slow and sluggish. She has had a headache for 5 days. She felt like she might pass out again. She denies fever at home but she is felt hot at night over the last 2 nights. She denies significant cough. No history of migraines. [facility] Medical History Bipolar 1 disorder Hypothyroid Home Medications ?Medication ?Instructions ?Recorded ?Last Taken ?Type lamotrigine 200 mg tablet 150 mg PO DAILY 06/27/13 Unknown History (Lamictal) buspirone 5 mg tablet 5 mg PO DAILY 02/13/22 Unknown History levothyroxine 137 mcg tablet 137 mcg PO DAILY disorder of 06/07/24 Unknown History thyroid gland nitrofurantoin 100 mg PO Q12 #14 CAPSULES 06/07/24 Unknown Rx monohydrate/macrocrystals 100 mg capsule ondansetron 4 mg disintegrating 4 mg PO Q8H PRN PRN Nausea #10 tabs 06/07/24 Unknown Rx tablet potassium chloride 20 mEq 20 meq PO DAILY #7 tabs 06/07/24 Unknown Rx tablet,extended release Allergy/AdvReac Type Severity Reaction Status Date / Time Penicillins Allergy Rash Verified 06/11/24 18:16 Surgical History History of cholecystectomy Social History Smoking Status: Never smoker ROS ROS ED Review of Systems ROS Unobtainable: other Constitutional Constitutional ED: Reports lethargy; Denies chills, fever(s), sweats or weight loss Eyes Eyes: Denies blurry vision, change in vision or diplopia ENT ENT ED: Denies rhinorrhea or sore throat Cardiovascular Cardiovascular: Reports chest pain and racing heartbeat; Denies orthopnea Respiratory/Chest Respiratory/Chest: Reports dyspnea and dyspnea on exertion; Denies cough, orthopnea or sputum Gastrointestinal Gastrointestinal: Reports nausea; Denies abdominal pain, diarrhea or vomiting Genitourinary Genitourinary ED: Denies dysuria, hematuria or urinary frequency Musculoskeletal Musculoskeletal: Denies arthralgias, back pain, myalgias or neck pain Integumentary Denies abscess, Abrasions or rash Neurologic Neurologic: Reports weakness; Denies headache(s) Psychiatric Psychiatric: Denies anxiety, depression or suicidal thoughts Endocrine Endocrinology: Denies polydipsia, polyphagia or polyuria Hematologic/Lymphatic Hematologic/Lymphatic: Denies easy bleeding, easy bruising or lymphadenopathy Allergic/Immunologic Allergic/Immunologic ED: Denies mouth swelling, tongue swelling or urticaria EXAM Physical Exam Const Vital Signs: 06/11/24 18:16 06/11/24 18:21 06/11/24 20:14 Temperature 97.3 F L Temperature Source Temporal Pulse Rate 81 77 Respiratory Rate 18 18 Respiratory Effort Respiratory Pattern Blood Pressure 160/79 H 123/77 H Blood Pressure Mean 106 92 Pulse Ox 100 100 100 Oxygen Delivery Method Room Air Room Air Room Air 06/11/24 21:45 06/11/24 22:00 Temperature Temperature Source Pulse Rate 71 Respiratory Rate 18 Respiratory Effort Normal Respiratory Pattern Normal Blood Pressure 123/77 H Blood Pressure Mean 92 Pulse Ox 100 Oxygen Delivery Method Room Air Positive well nourished and well developed General Appearance ED: well developed and NAD HEENT Reports TM's clear and moist mucous membranes normocephalic and atraumatic; Negative for trauma or tenderness Tympanic Membrane ED: Yes TM's clear Eyes PERRL and EOMs intact bilaterally General Eye ED: Negative for pale conjunctiva or scleral icterus Neck no lymphadenopathy, supple and no JVD General: Negative for tenderness Chest Wall inspection of chest normal and palpation of chest normal Chest: Negative for tenderness Resp normal respiratory effort and clear to auscultation bilaterally Effort and Inspection: Negative for respiratory distress or pain with movement Auscultation: Negative for rhonchi, wheezes or diminished lung sounds Cardio regular rate, regular rhythm, S1 normal heart sound, S2 normal heart sound and no murmurs Peripheral Pulses: pulses 2+ throughout GI normal to inspection, nondistended, normoactive bowel sounds, soft to palpation, non-tender, non-distended and no masses Back/Spine no CVA tenderness and no thoracic nor lumbar tenderness Extremity normal to inspection General Extremety ED: Negative for edema General Extremity: Negative for edema Neuro oriented x3, CN's II-XII intact bilaterally, no sensory deficits noted and gait normal Sensorium / Orientation: awake, alert, oriented to person, oriented to place and oriented to time Motor Exam: strength 5/5 throughout and strength abnormal Psych mental status grossly normal Skin no rashes or lesions noted and no wounds MDM MDM MDM Narrative Medical decision making narrative: Patient presents with near syncopal sensations today concerned because she had a syncopal episode while at work recently and was brought to the emergency department and at that time she was noted to have a UTI and hypokalemia. She was discharged to home. She has been taking her antibiotics and currently does not have urinary symptoms. Patient did not pass out today. IV line established on arrival. She was ordered a liter normal same fluid bolus. I did order orthostatic vital signs. CBC with differential obtained showed a WBC count of 7.2 with hemoglobin 11.7 and platelet count 240. Chemistries unremarkable. Potassium was 4.2 today. Urinalysis was without signs of infection today. I did do a CT scan of the brain without contrast that was normal. Orthostatic vital signs were negative. 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 She is advised to push fluids and not lock her knees. She is advised to follow-up with her primary care physician whom she has an appointment with in 6 days. Discharged home in stable condition peer Lab Data Attestation: I reviewed the patient's lab results. Labs: Laboratory Results - last 24 hr 06/11/24 06/11/24 21:18 21:48 WBC 7.2 RBC 3.62 L Hgb 11.7 L Hct 34.5 L MCV 95.3 MCH 32.3 H MCHC 33.9 RDW Std Deviation 41.4 RDW Coeff of Jose 11.9 Plt Count 240 MPV 10.9 Sodium 138 Potassium 4.2 Chloride 108 H Carbon Dioxide 27.0 Anion Gap 3 L BUN 7 Creatinine 0.80 Estim Creat Clear Calc 94.83 Est GFR (MDRD) Af Amer 100 Est GFR (MDRD) Non-Af 83 BUN/Creatinine Ratio 8.8 L Glucose 97 Calcium 9.7 Urine Color Yellow Urine Clarity Clear Urine pH 6.0 Ur Specific [place] 1.015 Urine Protein Negative Urine Glucose (UA) Normal Urine Ketones Negative Urine Occult Blood Negative Urine Nitrite Negative Urine Bilirubin Negative Urine Urobilinogen Normal Ur Leukocyte Esterase 25 H Urine RBC 0 SEEN Urine WBC 0-5 SEEN Ur Squamous Epith Cells 5-10 SEEN Urine Bacteria 2+ Urine Mucus 0 SEEN Radiography Diagnostic Testing: Clinical Impression(s) from Imaging Studies Brain CT 06/11/24 21:01 IMPRESSION: Normal unenhanced CT scan of the brain. Electronically Signed: Yogi Castillo DO at 22:13 EST , EKG Initial EKG: Attestation: I personally reviewed and interpreted this EKG as follows: Comments: Sinus rhythm with ventricular rate of 79 bpm with no acute ST segment changes Discharge Plan Triage Chief Complaint: Syncope ED Provider: Alondra Kramer Dx/Rx/DC Orders Clinical Impression: Near syncope Instructions: ED Near-Fainting, Uncertain Cause, ED Near-Fainting- Vagal Reaction Prescriptions: No Action lamotrigine [Lamictal] 200 MG tablet 150 mg PO DAILY buspirone 5 mg tablet 5 mg PO DAILY Patient Comments: Take 1 tablet by mouth twice a day levothyroxine 137 mcg tablet 137 mcg PO DAILY ondansetron 4 mg tablet,disintegrating 4 mg PO Q8H PRN PRN (Reason: Nausea) Qty: 10 0RF nitrofurantoin monohyd/m-cryst 100 mg capsule 100 mg PO Q12 Qty: 14 0RF potassium chloride 20 mEq tablet extended release 20 meq PO DAILY Qty: 7 0RF Primary Care Provider: Vita Stanley Referrals: Vita Stanley MD [Primary Care Provider] - 5-7 Days Print Language: Algerian Disposition Disposition: Home, Self Care
[2024-06-11] MEDS: 0.9% Normal Saline (1000mL) 1,000 ML 1000 ML IV (21:40)
[2024-06-11 21:48] LABS: Hematocrit 34.5 % (37-47); Hemoglobin 11.7 g/dL (12.0-15.0); Mean Corp Hgb Conc 33.9 g/dL (32-36); Mean Corpuscular Hgb 32.3 pg (27.0-32.0); Mean Corpuscular Volume 95.3 fL (81-99); Mean Platelet Vol. 10.9 fl (6.2-12.0); Platelet Count 240 K/mm3 (150-450); RBC Distribution Width CV 11.9 % (11.6-14.6); RBC Distribution Width SD 41.4 fl (35.1-43.9); Red Blood Count 3.62 M/mm3 (4.2-5.4); White Blood Count 7.2 K/mm3 (4.4-11.0)
[2024-06-11 21:54] LABS: Mucous, Urine 0 SEEN /hpf (<or=2+); Red Blood Cells-Urine 0 SEEN /hpf (0-5)
[2024-06-11 21:58] LABS: Color, Urine Yellow (Yellow); Glucose, Dipstick Normal (Normal); Ketone-Dipstick Negative (Negative); Leukocyte Esterase-Dipstick 25 /ul (Negative); Nitrite-Dipstick Negative (Negative); Occult Blood-Urine Negative /ul (Negative); Protein-Dipstick Negative (Negative); Specific Gravity, Urine 1.015 (1.002-1.030); Urine Bilirubin Dipstick Negative (Negative); Urine Clarity Clear (Clear); Urine Urobilinogen Normal (Normal)
[2024-06-11 22:00] VITALS: BP 123/77; PULSE 71; RESP 18; O2SAT 100
[2024-06-11 22:00] LABS: Anion Gap 3 (5-15); BUN 7 mg/dL (7-18); BUN/Creat Ratio 8.8 RATIO (10-20); Calcium,Total 9.7 mg/dL (8.5-10.1); Chloride 108 mmol/L (98-107); EST Glomerular Filtration Rate 83 mL/min (>60); Est Glom Filt Rate - Afr Amer 100 mL/min (>60); Estimated Creatinine Clearance 94.83 ml/min; Glucose 97 mg/dL (74-106); Potassium 4.2 mmol/L (3.5-5.1); Sodium Level 138 mmol/L (136-145)
[2024-06-11 22:32] LABS: Bacteria 2+ /hpf (None Seen); Squamous Epithelial Cells - UA 5-10 SEEN /hpf (5-10); White Blood Cells 0-5 SEEN /hpf (0-5)
[2024-06-11 22:47] VITALS: BP 123/77; PULSE 71; RESP 18; TEMP 36.3; O2SAT 100
[2024-06-11 22:48] VITALS: BP 114/71; BP 121/85; BP 127/83; PULSE 74; PULSE 77; PULSE 78
== END 2024-06-11 23:31 | disposition home or self-care (01) ==
PROVIDERS: Emergency Provider Emergency Medicine; PCP Internal Medicine; Visit Provider Emergency Medicine
DX: R55 Syncope and collapse (principal); F31.9 Bipolar disorder, unspecified; E03.9 Hypothyroidism, unspecified; Z79.899 Other long term (current) drug therapy
CPT/HCPCS: 70450; 80048; 81001; 85027; 87631; 93005; 96360; 99285; A4216